=== PATIENT | male | born 1985 | race Caucasian/White ===

== ENCOUNTER 2017-12-20 10:26 | Emergency (ER) | payer OTHER, BC ==
[~2017-12-20] VITALS: Ht 170.2 cm; Wt 76.4 kg
[~2017-12-20 10:26] MED LIST: FLOMAX0.4 MG PO; NAPROSYN500 MG PO; PERCOCET 5/31 TABLET PO
[2017-12-20] MEDS ORDERED: FLEXERIL10 MG PO (11:45)
[2017-12-20] MEDS ORDERED: MOTRIN600 MG PO (11:45)
[2017-12-20 12:03] VITALS: BP 107/60
== END 2017-12-20 12:04 | disposition home or self-care (01) ==
LOC: EME 10:26
DX: S16.1XXA Strain of muscle, fascia and tendon at neck level, initial encounter (principal); V49.40XA Driver injured in collision with unspecified motor vehicles in traffic accident, initial encounter; Y92.410 Unspecified street and highway as the place of occurrence of the external cause
CPT/HCPCS: 99281; 99283